=== PATIENT | male | born 1995 | race Caucasian/White ===

== ENCOUNTER 2023-10-03 23:59 | Emergency (ER) | payer OTHER ==
[~2023-10-03] VITALS: Ht 175.3 cm; Wt 75.0 kg
[2023-10-04 00:03] VITALS: BP 107/60; PULSE 70; RESP 17; TEMP 97.9
[2023-10-04] MEDS ORDERED: AMOXICILLIN TRIHYDRATE 250 MG CAPSULE PO ONE (00:30)
[2023-10-04] MEDS ORDERED: IBUPROFEN 600 MG TABLET PO ONE (00:30)
[2023-10-04] MEDS ORDERED: AMOX500C2 PO (00:41)
[2023-10-04] MEDS ORDERED: IBUP-1492 PO (00:42)
[2023-10-04] MEDS ORDERED: OxyCODONE HCL/ACETAMINOPHEN 5-325 MG TABLET PO ONE (00:45)
== END 2023-10-04 01:06 | disposition home or self-care (01) ==
LOC: EMS 10-04 00:03
DX: H60.92 Unspecified otitis externa, left ear (principal); Z88.2 Allergy status to sulfonamides
CPT/HCPCS: 99283

== ENCOUNTER 2023-10-13 09:18 | Emergency (ER) | payer OTHER ==
[~2023-10-13] VITALS: Ht 175.3 cm; Wt 72.7 kg
[~2023-10-13 09:18] MED LIST: AMOX500C2 PO; IBUP-1492 PO
[2023-10-13 09:23] VITALS: BP 92/53; PULSE 69; RESP 16; TEMP 98.1
[2023-10-13] MEDS ORDERED: CEFI400C4 PO (10:04)
[2023-10-13] MEDS: CefTRIAXone SODIUM 1 GM/VIAL IM ONE (10:16)
[2023-10-13] MEDS: LIDOCAINE/PF 1% 2 ML VIAL IM ONE (10:16)
== END 2023-10-13 10:57 | disposition home or self-care (01) ==
LOC: EMS 09:23
DX: H66.92 Otitis media, unspecified, left ear (principal); Z88.2 Allergy status to sulfonamides
CPT/HCPCS: 99283; 96372; J0696; J3490